=== PATIENT | female | born 1955 | race Caucasian/White ===

== ENCOUNTER 2022-05-29 08:30 | Emergency (ER) | payer SELFPAY ==
[2022-05-29 08:48] VITALS: BP 193/93; PULSE 79; RESP 16; TEMP 35.8; O2SAT 98; BMI 36.8
--- NOTE | 2022-05-29 09:15 | ED_ITS ---
HPI - Chest Pain General Chief Complaint: Chest Pain Stated Complaint: CHEST /BACK PAIN Time Seen by Provider: 05/29/22 09:01 History of Present Illness HPI narrative: This 66-year-old female comes in reporting pain in the right upper back and right chest. This is been present for a couple days. She states that the pain is reproducible when pressing in these areas and with certain movements. She states that she did fall a few days prior to onset of this pain. She does not report any nausea, vomiting, lightheadedness, shortness of breath, or diaphoresis. She has good exercise tolerance. She states that the pain is bothering her at night unless she can get into the right position in order to sleep. Related Data Home Medications Medication Instructions Recorded Confirmed aspirin 81 mg chewable tablet 81 mg PO DAILY 05/29/22 05/29/22 (Aspirin Childrens) Previous Rx's Medication Instructions Recorded ketorolac 10 mg tablet 10 mg PO Q8H 5 days #15 tabs 05/29/22 Allergies Allergy/AdvReac Type Severity Reaction Status Date / Time latex Allergy Mild roy skin Verified 05/29/22 08:53 nystatin [From Bio-Statin] Allergy throat Verified 05/29/22 08:53 swelling Review of Systems Status of ROS Reports: 10 or more systems reviewed and unremarkable except as noted in History and below Narrative Constitutional: No fevers, no weight gain or loss. Eyes: No discharge. No vision changes. HENT: No congestion, no sore throat, no ear pain. Cardiovascular: No palpitations. Chest pain as described above. Respiratory: No shortness of breath, no wheezes, no cough. Gastrointestinal: No abdominal pain, no vomiting, no diarrhea. Genitourinary: No dysuria, no hematuria. Musculoskeletal: Normal range of motion. Skin: No rashes, no pruritis. Neurological: No dizziness, weakness, sensory change, speech change. Endo/Heme/Allergies: No bruising or bleeding. No polydipsia. Pysch: no suicidality, no anxiety, no insomnia. All other systems reviewed and are negative. [facility] Surgical History (Updated 05/29/22 @ 08:54 by Sara Anderson RN) Status post ablation of atrial fibrillation Social History Smoking Status: Current every day smoker Do you use any of these nicotine containing products: None Second hand tobacco smoke exposure: No How often do you have a drink containing alcohol: never AUDIT-C Alcohol total score: 0 Non-prescribed substance use: denies use service: No Exam Narrative Exam Narrative: Constitutional: Well-developed, well-nourished, no acute distress. HEENT: Normocephalic, atraumatic. Neck: Normal range of motion. Nontender. Supple. Heart: Regular. No murmurs. Normal rate. Intact distal pulses. Lungs: Clear to auscultation. Chest discomfort is reproduced when palpating in the right anterior chest. No wheezes, rhonchi, or rales. Abdomen: Normal bowel sounds. Nontender. No rebound tenderness. Genitalia: Deferred. Back: No midline tenderness. Normal range of motion. She has some tenderness to the right of midline between the spine and the scapula. Extremities: Normal range of motion. No injury. Skin: Intact. No rash. Warm. No erythema or pallor. Neurologic: No altered sensation. No weakness. Alert and oriented. Psychiatric: No suicidality. No anxiety or depression. No insomnia. Nursing notes and vitals signs are reviewed. Const Vital Signs, click to edit/add: Vital Signs - 24 hr 05/29/22 08:48 Temperature 96.5 F L Pulse Rate [Left Pulse Oximeter] 79 Respiratory Rate 16 Blood Pressure [Left Upper Arm] 193/93 H Pulse Oximetry 98 Oxygen Delivery Method Room Air Course Vital Signs Vital signs: Initial Vital Signs Respiratory Effort 05/29/22 08:35 Respiratory Depth Normal 05/29/22 08:35 Respiratory Pattern 05/29/22 08:35 Vital Signs Temperature 96.5 F L 05/29/22 08:48 Pulse Rate 79 05/29/22 08:48 Respiratory Rate 16 05/29/22 08:48 Blood Pressure 193/93 H 05/29/22 08:48 Pulse Oximetry 98 05/29/22 08:48 Oxygen Delivery Method 05/29/22 08:48 Temperature 96.5 F L 05/29/22 08:48 Pulse Rate 79 05/29/22 08:48 Respiratory Rate 16 05/29/22 08:48 Blood Pressure 193/93 H 05/29/22 08:48 Pulse Oximetry 98 05/29/22 08:48 Oxygen Delivery Method 05/29/22 08:48 MDM - Chest Pain MDM Narrative Medical decision making narrative: This patient comes in with chest and back discomfort as described above. Her symptoms are reproducible with palpation and certain movements. EKG shows normal sinus rhythm without any sign of strain or injury to her heart. Her symptoms are reproducible suggesting chest wall or nerve mediated pain. Her skin appears normal and is not showing any sign of shingles. She did fall a couple days prior to her symptoms and this may be contributing to her discomfort. The patient received a rib belt and a prescription for Toradol. ECG Data Attestation: I personally reviewed and interpreted this ECG as follows: Interpretation: Normal sinus rhythm. Rate is 76 beats per minute. There are no ST or T-wave abnormalities. Discharge Plan Discharge Clinical Impression: Chest wall pain Patient Disposition: Home, Self-Care Condition: Stable Instructions: Chest Wall Pain (ED) Additional Instructions: Wear rib belt as needed. Take medication as prescribed and needed. Follow up with MD or return if worsening. Prescriptions: New ketorolac 10 mg tablet 10 mg PO Q8H 5 Days Qty: 15 0RF No Action aspirin [Aspirin Childrens] 81 mg tablet,chewable 81 mg PO DAILY Stand Alone Forms: [employer] Info Instructions
[2022-05-29 09:30] VITALS: BP 1797/85; PULSE 80; RESP 16; O2SAT 99
== END 2022-05-29 09:55 | disposition home or self-care (01) ==
PROVIDERS: Emergency Provider Emergency Medicine Emergency Medical Services; PCP Physician Assistant Medical
DX: R07.89 Other chest pain (principal)
CPT/HCPCS: 93005; 99283; 99284

== ENCOUNTER 2022-06-02 14:01 | Outpatient (CLI) | payer SELFPAY | END 2022-06-02 14:02 | disposition home or self-care (01) | LOC: FRMREF 14:03 | PROVIDERS: PCP Physician Assistant Medical; Visit Provider Physician Assistant Medical | DX: R07.89 Other chest pain (principal); M54.9 Dorsalgia, unspecified; I10 Essential (primary) hypertension | CPT/HCPCS: 84484 ==

== ENCOUNTER 2023-07-04 06:19 | Outpatient (CLI) | payer OTHER, SELFPAY ==
--- NOTE | 2023-07-04 08:06 | W.ANESCHARGE ---
Anesthesia Charges Start Date/Time Anesthesia Start Date: 07/04/23 Anesthesia Start Time: 07:24 Stop Date/Time Anesthesia Stop Date: 07/04/23 Anesthesia Stop Time: 08:04
--- NOTE | 2023-07-04 09:40 | W.ANESCHARGE ---
Anesthesia Charges Start Date/Time Anesthesia Start Date: 07/04/23 Anesthesia Start Time: 07:24 Stop Date/Time Anesthesia Stop Date: 07/04/23 Anesthesia Stop Time: 08:04
== END 2023-07-04 06:20 | disposition home or self-care (01) ==
LOC: OP CLINIC 06:24
PROVIDERS: PCP Family Medicine; Visit Provider Surgery
DX: Z12.11 Encounter for screening for malignant neoplasm of colon (principal); K62.1 Rectal polyp; Z86.010 Personal history of colon polyps
CPT/HCPCS: 00811; 45385; 88305; J2704